=== PATIENT | female | born 1980 | race Caucasian/White ===

== ENCOUNTER 2019-05-26 09:01 | Emergency (ER) | payer OTHER, SELFPAY ==
[2019-05-26 09:02] VITALS: BP 148/89; PULSE 95; RESP 18; TEMP 36.4; O2SAT 99; BMI 40.4
--- NOTE | 2019-05-26 09:25 | ED.VISSUMM ---
- ER Visit Summary Date of Service: 05/26/19 Chief Complaint: Dizziness History of Present Illness: The patient is a 39 F who presents with dizziness that began yesterday. Patient states is been constant since she woke up yesterday morning. Patient states it feels like the room is spinning and she is off balance. Patient states she feels like she could walk into oro. Patient denies any tinnitus or hearing changes. Patient admits to chronic headaches and states she has a headache behind her right eye. Patient states her dizziness is worse with certain movements. Patient denies any chest pain or palpitations. Patient denies any fevers or chills. Physical Examination: Vital signs are stable. Patient is afebrile. Patient is in no acute distress. Pupils are equal, round, and reactive to light bilaterally. Extraocular muscles were intact. There is mild nystagmus with left lateral gaze. Cranial nerves II through XII are intact. There are no focal motor or sensory deficits noted. Oral mucosa is pink and moist. Neck is supple. Trachea is midline. There is no JVD. Heart was regular rate and rhythm. Lungs are clear and equal bilaterally. Abdomen is soft. Bowel sounds are normal. There is no tenderness. Test Results: CBC and basic metabolic profile were within normal limits. Emergency Department Course and Treatment: Patient was given IV fluids and oral Valium here. Patient was feeling better on reevaluation. Patient states her dizziness has improved. Patient was given prescription for Valium and Antivert. Patient was instructed to follow-up with her primary care physician in 5 to 7 days. Patient understood and was agreeable with the plan. All questions were answered. Disposition: Discharge home Impression: Peripheral vertigo This note was generated with [employer] dictation software. It may contain incorrect words, spelling, and punctuation that were not noted in review of the chart prior to signing ED Disposition - Plan for ED Patient: Disposition: Home or Assisted Living Diagnosis: Peripheral vertigo Instructions: VERTIGO, Unspecified Prescriptions: Meclizine HCl 25 mg PO TID PRN PRN #9 tab PRN Reason: Vertigo Prescription Printed Diazepam [Valium] 2 mg PO TID PRN PRN #9 tab PRN Reason: Vertigo Prescription Printed Referrals: Sebastian George MD [Primary Care Provider] - 5-7 Days
[2019-05-26] MEDS: 0.9% Normal Saline 1,000 ML 1000 ML IV (09:34)
[2019-05-26] MEDS: diazePAM 5 MG Tablet 2.5 MG PO (09:35)
[2019-05-26 09:56] LABS: Absolute Lymphocyte Count 2.04 X10^3/uL (0.83-4.51); Absolute Neutrophil Count 5.6 X10^3/uL (2.0-7.7); Basophil# 0.07 X10^3/uL; Basophil% 0.8 % (0-1); Eosinophil# 0.11 X10^3/uL; Eosinophils% 1.3 % (0-5); Hematocrit 42.6 % (37-47); Hemoglobin 13.9 g/dL (12.0-15.0); Lymphocyte # 2.04 X10^3/ul (4.0); Lymphocyte % 23.9 % (19-41); Mean Corp Hgb Conc 32.6 g/dL (32-36); Mean Corpuscular Hgb 28.8 pg (27.0-32.0); Mean Corpuscular Volume 88.4 fL (81-99); Mean Platelet Vol. 9.6 fl (6.2-12.0); Monocyte% 8.2 % (0-10); NRBC Flagged by Analyzer 0 % (0-5); Neutrophil # 5.55 X10^3/uL (2.7-7.7); Neutrophil % 65.2 % (47-70); Platelet Count 357 K/mm3 (150-450); RBC Distribution Width CV 12.6 % (11.6-14.6); RBC Distribution Width SD 40.8 fl (35.1-43.9); Red Blood Count 4.82 M/mm3 (4.2-5.4); White Blood Count 8.5 K/mm3 (4.4-11.0)
[2019-05-26 10:00] LABS: Anion Gap 5 (5-15); BUN 9 mg/dL (7-18); BUN/Creat Ratio 8.8 RATIO (10-20); Calcium,Total 8.5 mg/dL (8.5-10.1); Chloride 106 mmol/L (98-107); Creatinine, Serum 1.02 mg/dL (0.55-1.02); EST Glomerular Filtration Rate 64 mL/min (>60); Est Glom Filt Rate - Afr Amer 78 mL/min (>60); Estimated Creatinine Clearance 72.01 ml/min; Glucose 93 mg/dL (74-106); Potassium 3.8 mmol/L (3.5-5.1); Sodium Level 139 mmol/L (136-145)
[2019-05-26 11:13] VITALS: BP 135/64; PULSE 77; RESP 16; O2SAT 98
== END 2019-05-26 11:15 | disposition home or self-care (01) ==
PROVIDERS: Emergency Provider Emergency Medicine; Family Provider Family Medicine; PCP Family Medicine
DX: H81.399 Other peripheral vertigo, unspecified ear (principal); M54.2 Cervicalgia; M54.9 Dorsalgia, unspecified; R51 Headache; G89.29 Other chronic pain; J45.909 Unspecified asthma, uncomplicated; K21.9 Gastro-esophageal reflux disease without esophagitis; M79.7 Fibromyalgia; E03.9 Hypothyroidism, unspecified; F39 Unspecified mood [affective] disorder; Z79.899 Other long term (current) drug therapy
CPT/HCPCS: 36415; 80048; 85025; 96360; 96361; 99284; J7030; A4216

== ENCOUNTER 2019-09-26 11:29 | Emergency (ER) | payer SELFPAY ==
[2019-09-26 11:31] VITALS: BP 158/90; PULSE 80; RESP 17; TEMP 36.8; O2SAT 97; BMI 39.1
--- NOTE | 2019-09-26 11:49 | RAD_ITS ---
STUDY: X-RAY CHEST REASON FOR EXAM: Female, 39 years old. COUGH SINCE THURSDAY TECHNIQUE: PA and lateral views of the chest. COMPARISON: Comparison is made with prior study March 31, 2015. FINDINGS: The lungs are clear and expanded. Scattered calcified granulomas. There is no demonstrated pleural abnormality. Normal size heart. Normal mediastinum and karley. Normal visualized pulmonary arteries. Normal visualized aortic arch and descending thoracic aorta. Normal visualized thoracic spine. Normal visualized ribs, clavicles, and shoulders. There is no demonstrated abnormality of the visualized soft tissue structures of the upper abdomen. RAD/Chest 1 View (Portable) IMPRESSION: Normal x-ray examination of the chest. Electronically Signed: Be Ward, at 13:06 EDT , Service support ,
--- NOTE | 2019-09-26 11:53 | ED.DCSUM_ITS ---
History of Present Illness Chief Complaint: Cough Informant: Patient Narrative: Patient presents with a cough, this is been ongoing for 2 weeks she has no fever chills she has slight upper airway congestion she has been working from home and lives by herself. She has no sick contacts. She has no shortness of breath. She has no dysuria or hematuria she has no abdominal pain. She denies . She has no flank pain. She denies a rash. She has no neck pain or stiffness. Past Medical History - Allergies and Home Meds Allergies/Adverse Reactions: Allergies codeine Allergy (Verified 09/26/19 11:30) Chest tightness mirtazapine [From Remeron] Allergy (Verified 09/26/19 11:30) Rash morphine Allergy (Verified 09/26/19 11:30) Chest tightness Penicillins Allergy (Verified 09/26/19 11:30) Rash Sulfa (Sulfonamide Antibiotics) Allergy (Verified 09/26/19 11:30) Itching Primary Care Physician: Sebastian George MD [Primary Care Provider] - Past Medical History: - - Asthma, hypothyroidism Smoking Status: Former smoker Review of Systems All systems negative except as indicated General: Denies: Chills, Fever Eyes: Denies: Visual changes - bilaterally ENT: Reports: Rhinorrhea. Denies: Bilateral ear pain, Sore throat Cardiovascular: Denies: Chest pain, Palpitations Respiratory: Reports: Cough. Denies: Dyspnea, Sputum Gastrointestinal: Denies: Abdominal pain, Nausea Genitourinary: Denies: Dysuria Musculoskeletal: Denies: Myalgias, Neck pain, Back pain Skin: Denies: Rash Neurological: Denies: Headache, Weakness Endocrine: Denies: Polyuria Physical Exam Vital Signs/Narrative: Vital Signs Temp Pulse Resp BP Pulse Ox 09/26/19 11:31 98.3 F 80 17 158/90 H 97 General: Well nourished, Well developed Eyes: Perrl, EOMI ENT: Moist mucous membranes, - - Some upper airway congestion Neck: Supple Cardiovascular: Regular rate, Regular rhythm Respiratory: No distress, CTA bilaterally Abdomen: Soft, Nontender, Nondistended, Normal bowel sounds Back: Nontender, Normal Inspection Extremities: Nontender, No edema Skin: Normal color, No rash Neurological: Alert, Oriented x3 Psychological: Normal affect Diagnostic/Tx/Re-eval Chest X-Ray - ED: 1 View, Read by ED Physician, Read by Radiologist, Normal, Heart, Lungs - Medical Decision Making Patient has a normal work-up, she likely has bronchitis, I told her she could have coronavirus however I cannot test at this particular time she already is self quarantining and I told her to continue that, if she worsens she needs to return otherwise she has a normal x-ray and blood work. I will give her an inhaler for home and antitussives. ED Disposition - Plan for ED Patient: Disposition: Psychiatric Hospital or Unit Diagnosis: Bronchitis Instructions: Acute Bronchitis Prescriptions: Albuterol Sulfate [Proair Digihaler] 90 mcg IH 4X/DAY PRN #1 aer.pw.bas PRN Reason: Cough Transmission Status: Pending to [facility] Benzonatate [Tessalon Perle] 100 mg PO Q4H PRN PRN #20 cap PRN Reason: Cough Transmission Status: Pending to [facility] Referrals: Sebastian George MD [Primary Care Provider] - 3-5 Days
[2019-09-26 12:33] LABS: Absolute Lymphocyte Count 2.56 X10^3/uL (0.83-4.51); Basophil# 0.06 X10^3/uL; Basophil% 0.8 % (0-1); Eosinophil# 0.14 X10^3/uL; Eosinophils% 1.9 % (0-5); Hematocrit 42.2 % (37-47); Hemoglobin 13.7 g/dL (12.0-15.0); Lymphocyte # 2.56 X10^3/ul (4.0); Lymphocyte % 35.1 % (19-41); Mean Corp Hgb Conc 32.5 g/dL (32-36); Mean Corpuscular Hgb 28.8 pg (27.0-32.0); Mean Corpuscular Volume 88.7 fL (81-99); Mean Platelet Vol. 9.7 fl (6.2-12.0); Monocyte# 0.51 X10^3/uL; NRBC Flagged by Analyzer 0 % (0-5); Neutrophil % 54.8 % (47-70); Platelet Count 339 K/mm3 (150-450); RBC Distribution Width CV 12.2 % (11.6-14.6); RBC Distribution Width SD 39.8 fl (35.1-43.9); Red Blood Count 4.76 M/mm3 (4.2-5.4); White Blood Count 7.3 K/mm3 (4.4-11.0)
== END 2019-09-26 14:48 | disposition home or self-care (01) ==
PROVIDERS: Emergency Provider Emergency Medicine; PCP Family Medicine
DX: J40 Bronchitis, not specified as acute or chronic (principal); E03.9 Hypothyroidism, unspecified; J45.909 Unspecified asthma, uncomplicated; Z79.899 Other long term (current) drug therapy; Z87.891 Personal history of nicotine dependence
CPT/HCPCS: 71045; 85025; 99283

== ENCOUNTER 2019-10-19 00:43 | Emergency (ER) | payer SELFPAY ==
[2019-10-19 00:53] VITALS: BP 136/95; PULSE 86; RESP 23; TEMP 36.8; O2SAT 100; BMI 40.2
[2019-10-19 00:57] VITALS: BP 136/95; PULSE 84; RESP 22; TEMP 36.8; O2SAT 99
[2019-10-19] MEDS: Benzonatate 100 MG Capsule 200 MG PO (01:22)
--- NOTE | 2019-10-19 01:26 | ED.DCSUM_ITS ---
- ER Visit Summary Date of Service: 10/19/19 Chief Complaint: Cough and shortness of breath History of Present Illness: The patient is a [address] Andrew. She reports that she has a cough began on September 11. States that she had fever, fatigue, and this cough for a week. It seemed to improve, but did not resolve. She was seen here September 25 and was diagnosed with bronchitis. She had a telehealth visit with [facility] on October 02 and was prescribed prednisone. She had another telehealth visit on October 08 and was prescribed doxycycline. She did not have a chest x-ray at that time. She has not been tested for coronavirus. Patient reports that despite all of the above measures she still has coughing episodes. She reports that she is coughing up very little clear sputum. No blood. No fever, chills, or chest pain. Reports that she has moderate shortness of breath currently and severe at worst. Is worsened by coughing. She has had minimal relief with her albuterol MDI. Patient lives by herself. She has been staying at home. She does not know of any sick contacts. She has not been tested for COVID-19. Physical Examination: Vitals: Stable. Afebrile. General: Well-nourished and well-developed. Head: Normocephalic atraumatic. Neck: Supple, no lymphadenopathy. No JVD. Nontender. Cardiovascular: Regular rate and rhythm. No murmurs. Respiratory: No respiratory distress. Clear to auscultation bilaterally. Frequent dry cough. Abdominal: Soft, nontender, nondistended, normal bowel sounds. No guarding, rebound, or peritoneal signs. Back: Nontender. Extremities: Nontender, no edema. Skin: Normal color, no rash. Neurologic: Alert and oriented ?3. Cranial nerves II through XII are intact. Normal strength and sensation. Psych: Normal affect. Test Results: Chest x-ray shows no acute disease. Emergency Department Course and Treatment: Patient had an IV placed. She is given a 500 cc bolus of normal saline. She was given Tessalon Perles and prednisone. She is resting comfortably. Multiple attempts were made at a blood draw by nursing staff as well as the lab without success. The patient refused a fem stick. Treatment Plan: Patient will be discharged on prednisone. She is instructed to follow-up with Dr. Quintero in 1 to 2 weeks for another exam. Follow-up with her primary care physician for possible COVID-19 testing. She is instructed to continue to quarantine herself. Return to the emergency department for any worsening symptoms. Disposition: To home in improved and stable condition. Impression: 1. URI. 2. Asthma. 3. Possible COVID-19 infection. This note was generated with [employer] dictation software. It may contain incorrect words, spelling, and punctuation that were not noted in review of the chart prior to signing ED Disposition - Plan for ED Patient: Instructions: ED Upper Resp Infec No Abx Tx Prescriptions: Prednisone [Deltasone] 60 mg PO DAILY #15 tab Prescription Printed Referrals: Sebastian George MD [Primary Care Provider] - 1-2 Days if not improving Kevin Quintero MD [STAFF PHYSICIAN] - 1-2 Weeks
--- NOTE | 2019-10-19 02:40 | RAD_ITS ---
STUDY: X-RAY CHEST REASON FOR EXAM: Female, 39 years old. SOB, COUGH, RASH TECHNIQUE: Single AP portable view of the chest. COMPARISON: 09/26/2019. FINDINGS: The lungs are clear and expanded. There is no demonstrated pleural abnormality. Normal size heart. Normal mediastinum and karley. Normal visualized pulmonary arteries. Normal visualized aortic arch and descending thoracic aorta. Normal visualized thoracic spine. Normal visualized ribs, clavicles, and shoulders. There is no demonstrated abnormality of the visualized soft tissue structures of the upper abdomen. RAD/Chest 1 View (Portable) IMPRESSION: Normal x-ray examination of the chest. Electronically Signed: Janeen López MD at 3:30 EDT , Service support ,
[2019-10-19 02:43] VITALS: BP 135/86; PULSE 87; RESP 16; O2SAT 99
--- NOTE | 2019-10-19 02:50 | ED.RN ---
Lab called after multiple attempts of getting blood. IV was placed, no blood. Lab unable to get blood. MD aware and will talk to PT about femoral stick, etc.
[2019-10-19 03:35] VITALS: BP 137/88; PULSE 86; RESP 18; O2SAT 100
[2019-10-19] MEDS: predniSONE 20 MG Tablet 60 MG PO (03:42)
== END 2019-10-19 04:09 | disposition home or self-care (01) ==
LOC: ED 04:03
PROVIDERS: Emergency Provider Emergency Medicine; PCP Family Medicine
DX: J06.9 Acute upper respiratory infection, unspecified (principal); J45.909 Unspecified asthma, uncomplicated; K21.9 Gastro-esophageal reflux disease without esophagitis; M79.7 Fibromyalgia; F31.9 Bipolar disorder, unspecified; E03.9 Hypothyroidism, unspecified; Z79.899 Other long term (current) drug therapy
CPT/HCPCS: 71045; 87633; 96360; 96361; 99285; J7040

== ENCOUNTER 2021-05-27 11:27 | Emergency (ER) | payer BC, SELFPAY ==
[2021-05-27 11:27] VITALS: BP 156/102; PULSE 82; RESP 16; TEMP 36.3; O2SAT 99; BMI 38.5
[2021-05-27 11:31] VITALS: BMI 38.5
--- NOTE | 2021-05-27 11:41 | ED.RN ---
pt texting boyfriend on her phone. pt answers questions appropriately. pt able to remove shirt and bra and put gown on without assistance.
--- NOTE | 2021-05-27 12:19 | CT_ITS ---
STUDY: CT BRAIN WITHOUT CONTRAST REASON FOR EXAM: Female, 41 years old. Weakness and confusion. RADIATION DOSAGE (If Supplied By Facility): CTDIvol = ( 44.99 ) mGy, DLP = ( 812.98 ) mGycm TECHNIQUE: Transaxial CT imaging of the brain was performed without administration of intravenous contrast material. Individualized dose optimization techniques were used for this CT. COMPARISON: No relevant priors. FINDINGS: Normal soft tissue structures. Normal calvarium. Normal size ventricles and extra-axial spaces for the patient''s age. Normal white matter tracts of the cerebral hemispheres. Normal basal ganglia and thalami. Normal brainstem. Normal cerebellum. There is no intracranial hemorrhage. There are no findings of an acute ischemic infarction. Normal visualized paranasal sinuses. CT/Brain/Head without Contrast IMPRESSION: Normal unenhanced CT scan of the brain. Electronically Signed: Be Ward MD at 13:56 EST , Service support ,
--- NOTE | 2021-05-27 12:20 | EKG12_ITS ---
Test Reason : Blood Pressure : / mmHG Vent. Rate : 070 BPM Atrial Rate : 070 BPM P-R Int : 108 ms QRS Dur : 092 ms QT Int : 374 ms P-R-T Axes : 043 020 009 degrees QTc Int : 403 ms Sinus rhythm with short VA Otherwise normal ECG Confirmed by NORMAN MCDONALD, PRICE ([id number]), technical writer and editor JESUS ALBERTO NAGY ([id number]) on 05/29/2021 9:49:01 AM Referred By: MED/USMAN Confirmed By:PRICE AUSTIN MD
[2021-05-27 12:46] VITALS: BP 134/82; PULSE 86; RESP 20; O2SAT 97
[2021-05-27 12:51] LABS: Absolute Lymphocyte Count 2.49 X10^3/uL (0.83-4.51); Absolute Neutrophil Count 4.4 X10^3/uL (2.0-7.7); Basophil# 0.06 X10^3/uL; Basophil% 0.8 % (0-1); Eosinophil# 0.15 X10^3/uL; Eosinophils% 1.9 % (0-5); Hematocrit 43.2 % (37-47); Lymphocyte # 2.49 X10^3/ul (0.83-4.51); Lymphocyte % 32.2 % (19-41); Mean Corp Hgb Conc 32.4 g/dL (32-36); Mean Corpuscular Volume 92.5 fL (81-99); Mean Platelet Vol. 9.8 fl (6.2-12.0); Monocyte# 0.57 X10^3/uL; Monocyte% 7.4 % (0-10); NRBC Flagged by Analyzer 0 % (0-5); Neutrophil % 56.9 % (47-70); Platelet Count 369 K/mm3 (150-450); RBC Distribution Width CV 12.2 % (11.6-14.6); RBC Distribution Width SD 41.7 fl (35.1-43.9); Red Blood Count 4.67 M/mm3 (4.2-5.4); White Blood Count 7.7 K/mm3 (4.4-11.0)
[2021-05-27 13:15] LABS: ALB/GLOB Ratio 0.9 RATIO (0.9-2.4); AST(SGOT) 12 U/L (15-37); Alanine Aminotransfer ALT/SGPT 26 U/L (13-56); Albumin, Serum 3.8 g/dL (3.2-5.0); Alkaline Phosphatase 86 U/L (45-117); Anion Gap 8 (5-15); BUN 12 mg/dL (7-18); BUN/Creat Ratio 11.9 RATIO (10-20); Calcium,Total 9.4 mg/dL (8.5-10.1); Chloride 106 mmol/L (98-107); Creatinine, Serum 1.01 mg/dL (0.55-1.02); EST Glomerular Filtration Rate 64 mL/min (>60); Est Glom Filt Rate - Afr Amer 78 mL/min (>60); Estimated Creatinine Clearance 71.28 ml/min; Globulin 4.2 g/dL (2.2-4.2); Glucose 88 mg/dL (74-106); Potassium 3.7 mmol/L (3.5-5.1); Sodium Level 141 mmol/L (136-145); T4 Free Direct 1.45 ng/dL (0.76-1.46); Thyroid Stim Hormone (TSH) 0.88 uIU/mL (0.358-3.74); Troponin-I HS 6 pg/mL (3.0-54.0)
--- NOTE | 2021-05-27 13:16 | RAD_ITS ---
STUDY: X-RAY CHEST REASON FOR EXAM: Female, 41 years old. Confusion. TECHNIQUE: Single AP portable view of the chest. COMPARISON: Comparison is made with prior study of 10/19/2019. FINDINGS: EKG electrodes are seen. The lungs are clear and expanded. There is no demonstrated pleural abnormality. Normal size heart. Normal mediastinum and karley. Normal visualized pulmonary arteries. Normal visualized aortic arch and descending thoracic aorta. Normal visualized thoracic spine. Normal visualized ribs, clavicles, and shoulders. There is no demonstrated abnormality of the visualized soft tissue structures of the upper abdomen. RAD/Chest 1 View (Portable) IMPRESSION: Normal x-ray examination of the chest. Electronically Signed: Be Ward MD at 13:41 EST , Service support ,
[2021-05-27 14:22] VITALS: BP 137/90; PULSE 85; RESP 14; O2SAT 100
--- NOTE | 2021-05-27 14:35 | EDS_ITS ---
HPI History of Present Illness Chief Complaint: Neuro S/Sx Narrative Narrative: 41-year-old female speaking in full complete sentences stating that she is having trouble speaking in full sentences. She states this is been going on for 4 days. She states this may be a problem with memory. She states that her boyfriend says she is having some memory problems. Patient denies any headache, trauma, visual complaints, difficulty swallowing, or difficulty moving either arm or leg. She has not had any numbness or tingling on any extremity. She denies chest pain or shortness of breath. She has no history of stroke in the past. [facility] Medical History Hypothyroidism Home Medications albuterol sulfate [Ventolin Hfa] 1 puff INHALATION Q4H PRN PRN 01/26/14 [History Last Taken Unknown] cetirizine [Zyrtec] 10 mg PO DAILY 01/26/14 [History Last Taken Unknown] levothyroxine 75 mcg PO DAILY 01/26/14 [History Last Taken Unknown] montelukast 10 mg PO DAILY 01/26/14 [History Last Taken Unknown] doxepin 50 mg PO QHS 03/30/15 [History Last Taken Unknown] diazepam 2 mg PO TID PRN PRN #9 tab 05/26/19 [Rx Last Taken Unknown] meclizine 25 mg PO TID PRN PRN #9 tab 05/26/19 [Rx Last Taken Unknown] albuterol sulfate 90 mcg IH 4X/DAY PRN #1 aer.pw.bas 09/26/19 [Rx Last Taken Unknown] benzonatate 100 mg PO Q4H PRN PRN #20 cap 09/26/19 [Rx Last Taken Unknown] prednisone 60 mg PO DAILY #15 tab 10/19/19 [Rx Last Taken Unknown] Allergy/AdvReac Type Severity Reaction Status Date / Time codeine Allergy Chest Verified 05/27/21 11:29 tightness mirtazapine [From Remeron] Allergy Rash Verified 05/27/21 11:29 morphine Allergy Chest Verified 05/27/21 11:29 tightness Penicillins Allergy Rash Verified 05/27/21 11:29 Sulfa (Sulfonamide Allergy Itching Verified 05/27/21 11:29 Antibiotics) Social History Smoking Status: Never smoker ROS ROS ED Constitutional Constitutional ED: Denies chills or fever(s) Eyes Eyes: Denies blurry vision or change in vision ENT ENT ED: Denies rhinorrhea or sore throat Cardiovascular Cardiovascular: Denies chest pain or palpitations Respiratory/Chest Respiratory/Chest: Denies cough, dyspnea or sputum Gastrointestinal Gastrointestinal: Denies abdominal pain, nausea or vomiting Genitourinary Genitourinary ED: Denies dysuria or hematuria Musculoskeletal Musculoskeletal: Denies arthralgias, back pain, myalgias or neck pain Integumentary Denies abscess or rash Neurologic Neurologic: Denies headache(s) Psychiatric Psychiatric: Denies anxiety or depression Endocrine Endocrinology: Denies polydipsia, polyphagia or polyuria EXAM Physical Exam Const Vital Signs: 05/27/21 11:27 05/27/21 12:46 05/27/21 14:22 Temperature 97.3 F L Temperature Source Temporal Pulse Rate 82 86 85 Respiratory Rate 16 20 H 14 Blood Pressure 156/102 H 134/82 H 137/90 H Blood Pressure Mean 120 99 105 Pulse Ox 99 97 100 Oxygen Delivery Method Room Air Room Air Room Air Positive well nourished General Appearance ED: NAD HEENT Reports moist mucous membranes Negative for trauma Eyes PERRL and EOMs intact bilaterally General Eye ED: Negative for pale conjunctiva or scleral icterus Neck no lymphadenopathy and supple Resp normal respiratory effort and clear to auscultation bilaterally Cardio regular rate and regular rhythm Neuro oriented x3, CN's II-XII intact bilaterally and no sensory deficits noted Neuro Narrative: NIH = 0. Patient speaking in full sentences without dysarthria or confusion. Sensorium / Orientation: alert Motor Exam: strength 5/5 throughout Psych mental status grossly normal MDM MDM MDM Narrative Medical decision making narrative: Patient concern for possible stroke although her only symptom is having difficulty speaking in full sentences. She has been able to answer all of my questions in full complete sentences without speech difficulty. There is no slurred speech. That her NIH is 0. I did obtain blood work and her CBC, CMP are normal. Patient additionally I did check her TSH level which is 0.88 and her T4 is 1.45 and these are both normal. EKG on my interpretation shows a normal sinus rhythm with a ventricular 70 bpm without sign of ischemic change. Chest x-ray on my interpretation shows no acute cardiopulmonary process and the radiologist does agree. CT of the brain without contrast is performed and is negative for any acute intracranial findings. Patient has no current risk factors for stroke. She is not had a history of this. I did not find any abnormalities on her neurologic exam or her work-up. I believe she is safe for outpatient follow-up with her primary care provider. Impression: 1. Feared complaint not found Lab Data Labs: Laboratory Results - last 24 hr 05/27/21 05/27/21 12:40 12:40 WBC 7.7 RBC 4.67 Hgb 14.0 Hct 43.2 MCV 92.5 MCH 30.0 MCHC 32.4 RDW Std Deviation 41.7 RDW Coeff of Trudy 12.2 Plt Count 369 MPV 9.8 Immature Gran % (Auto) 0.800 Neut % (Auto) 56.9 Lymph % (Auto) 32.2 Coke % (Auto) 7.4 Eos % (Auto) 1.9 Baso % (Auto) 0.8 Absolute Neuts (auto) 4.4 Absolute Lymphs (auto) 2.49 Nucleated RBC % 0 Sodium 141 Potassium 3.7 Chloride 106 Carbon Dioxide 27.0 Anion Gap 8 BUN 12 Creatinine 1.01 Estim Creat Clear Calc 71.28 Est GFR (MDRD) Af Amer 78 Est GFR (MDRD) Non-Af 64 BUN/Creatinine Ratio 11.9 Glucose 88 Calcium 9.4 Total Bilirubin 0.30 AST 12 L ALT 26 Alkaline Phosphatase 86 Troponin I High Sens 6 Total Protein 8.0 Albumin 3.8 Globulin 4.2 Albumin/Globulin Ratio 0.9 TSH 0.88 Free T4 1.45 Radiography Diagnostic Testing: Clinical Impression(s) from Imaging Studies Brain CT 05/27/21 12:19 IMPRESSION: Normal unenhanced CT scan of the brain. Electronically Signed: Be Ward MD at 13:56 EST , Service support , Chest X-Ray 05/27/21 13:16 IMPRESSION: Normal x-ray examination of the chest. Electronically Signed: Be Ward MD at 13:41 EST , Service support , Discharge Plan Triage Chief Complaint: Neuro S/Sx ED Provider: Ramu Wilson Dx/Rx/DC Orders Prescriptions: No Action levothyroxine 75 MCG tablet 75 mcg PO DAILY RF: 0 montelukast 10 MG tablet 10 mg PO DAILY RF: 0 albuterol sulfate [Ventolin HFA] 1 INHALER inhaler 1 puff inhalation Q4H PRN PRN (Reason: Sob &/Or Wheezing) RF: 0 cetirizine [Zyrtec] 10 MG capsule 10 mg PO DAILY RF: 0 doxepin 50 MG capsule 50 mg PO QHS RF: 0 diazepam 2 MG tablet 2 mg PO TID PRN PRN (Reason: Vertigo) Qty: 9 RF: 0 meclizine 25 MG tablet 25 mg PO TID PRN PRN (Reason: Vertigo) Qty: 9 RF: 0 benzonatate 100 MG capsule 100 mg PO Q4H PRN PRN (Reason: Cough) Qty: 20 RF: 0 albuterol sulfate 90 MCG aero powdr breath act w/sensor 90 mcg IH 4X/DAY PRN (Reason: Cough) Qty: 1 RF: 0 prednisone 20 MG tablet 60 mg PO DAILY Qty: 15 RF: 0 Primary Care Provider: Sebastian George Referrals: Sebastian George MD [Primary Care Provider] - Activity Restrictions/Additional Instructions: The cause of your symptoms that you have been having for 4 days is unclear. I did not find any neurologic abnormalities on your exam. Your blood work and imaging is all normal. I recommend that she follow-up with your primary care provider. Disposition Disposition: Home, Self Care
== END 2021-05-27 14:41 | disposition home or self-care (01) ==
PROVIDERS: Emergency Provider Student in an Organized Health Care Education/Training Program; PCP Family Medicine
DX: Z71.1 Person with feared health complaint in whom no diagnosis is made (principal); R47.9 Unspecified speech disturbances; E03.9 Hypothyroidism, unspecified; Z79.899 Other long term (current) drug therapy
CPT/HCPCS: 70450; 71045; 80053; 84439; 84443; 84484; 85025; 93005; 99284; A4216

== ENCOUNTER 2021-08-01 15:46 | Emergency (ER) | payer OTHER, BC, SELFPAY ==
[2021-08-01 15:47] VITALS: BP 164/97; PULSE 107; RESP 16; TEMP 36.2; O2SAT 100; BMI 38.0
--- NOTE | 2021-08-01 16:06 | EDS_ITS ---
HPI <FEI Mendez - Last Filed: 08/01/21 17:14> History of Present Illness Chief Complaint: Bite Narrative Narrative: Patient presents with dog bites to her left leg. 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 The horticultural farm manager's boxer ran out and bit her several times on the left leg. Bleeding is controlled. Last tetanus is unknown. PFSH <FEI Mendez - Last Filed: 08/01/21 17:14> [facility] Medical History Hypothyroidism Home Medications albuterol sulfate [Ventolin Hfa] 1 puff INHALATION Q4H PRN PRN 01/26/14 [History Last Taken Unknown] cetirizine [Zyrtec] 10 mg PO DAILY 01/26/14 [History Last Taken Unknown] levothyroxine 100 mcg PO DAILY 01/26/14 [History Last Taken Unknown] montelukast 10 mg PO DAILY 01/26/14 [History Last Taken Unknown] doxepin 50 mg PO QHS 03/30/15 [History Last Taken Unknown] diazepam 2 mg PO TID PRN PRN #9 tab 05/26/19 [Rx Last Taken Unknown] meclizine 25 mg PO TID PRN PRN #9 tab 05/26/19 [Rx Last Taken Unknown] albuterol sulfate 90 mcg IH 4X/DAY PRN #1 aer.pw.bas 09/26/19 [Rx Last Taken Unknown] benzonatate 100 mg PO Q4H PRN PRN #20 cap 09/26/19 [Rx Last Taken Unknown] amoxicillin-pot clavulanate 1 tab PO BID #14 tab 08/01/21 [Rx Last Taken Unknown] ondansetron 4 mg PO Q8H PRN #10 tab 08/01/21 [Rx Last Taken Unknown] tramadol 50 mg PO Q6H PRN #10 tab 08/01/21 [Rx Last Taken Unknown] trazodone 100 mg PO QHS 08/01/21 [History Last Taken Unknown] Allergy/AdvReac Type Severity Reaction Status Date / Time codeine Allergy Chest Verified 08/01/21 15:50 tightness mirtazapine [From Remeron] Allergy Rash Verified 08/01/21 15:50 morphine Allergy Chest Verified 08/01/21 15:50 tightness Penicillins Allergy Rash Verified 08/01/21 15:50 Sulfa (Sulfonamide Allergy Itching Verified 08/01/21 15:50 Antibiotics) Social History Smoking Status: Never smoker ROS <FEI Mendez - Last Filed: 08/01/21 17:14> ROS ED ROS Narrative Constitutional: Negative for fever, chills, malaise. Eyes: Negative for visual change. ENT: Negative for sore throat, ear pain, rhinorrhea. CVS: Negative for palpitations, chest pain, syncope. Respiratory: Negative for shortness of breath, cough, orthopnea. GI: Negative for abdominal pain, nausea, vomiting. : Negative for dysuria, hematuria or frequency. Neuro: Negative for headache, motor/sensory dysfunction. Skin: Positive for wound. Negative for rash, abscess. Musc: Negative for joint pain, swelling, trauma. Heme: Negative for easy bruising, bleeding, lymphadenopathy. EXAM <FEI Mendez - Last Filed: 08/01/21 17:14> Physical Exam Narrative Exam Narrative: CONST: Patient sitting in no acute distress. EYES: Normal inspection. ENT: Normal inspection, moist mucous membranes. NECK: Normal inspection. RESP: No respiratory distress, CTAB. CVS: Regular rate and rhythm, no murmur, no gallop. SKIN: Several small abrasions/tiny lacerations on left lower extremity with surrounding bruising. 1 on posterior thigh, 2 on anterior mid thigh, 1 on lateral calf. EXTREMITIES: Normal appearance, no pedal edema. 2+ PT pulses. NEURO: Oriented x4. PSYCH: Normal affect. Const Vital Signs: 08/01/21 15:47 Temperature 97.2 F L Temperature Source Temporal Pulse Rate 107 H Respiratory Rate 16 Blood Pressure 164/97 H Blood Pressure Mean 119 Pulse Ox 100 Oxygen Delivery Method Room Air <Dr. Aaron Damon MD - Last Filed: 08/01/21 17:26> Physical Exam Const Vital Signs: 08/01/21 15:47 Temperature 97.2 F L Temperature Source Temporal Pulse Rate 107 H Respiratory Rate 16 Blood Pressure 164/97 H Blood Pressure Mean 119 Pulse Ox 100 Oxygen Delivery Method Room Air MDM <FEI Mendez - Last Filed: 08/01/21 17:14> [facility] Narrative Medical decision making narrative: Patient has multiple dog bites to her left leg. She has 4 small areas of tiny lacerations/abrasions on the left thigh and lateral calf. They are all superficial and there is some surrounding bruising. Extremities neurovascularly intact. They were thoroughly cleansed with soap and water and tetanus was updated. Only one wound on her anterior thigh has some fat exposed and required closure. It was thoroughly irrigated with sterile saline and anesthetized with 2 cc of 1% lidocaine. It was closed with 2 simple interrupted sutures of 5-0 Ethilon which will need removed in 10 to 12 days. She was given first dose of Augmentin here and a prescription for home. She was counseled on signs of infection that would warrant return and was discharged in stable condition. Diagnosis 1. Dog bites, left leg 2. Laceration of left thigh, simple closure <Dr. Aaron Damon MD - Last Filed: 08/01/21 17:26> [facility] Narrative Medical decision making narrative: Patient was taking pictures of a home for inspection. The homeowners dog ran out and charged her. She was bit in the leg, anterior proximal left thigh and superior posterior right thigh near the buttocks crease. There is 1 wound anterior left thigh that will require stitching. It is V-shaped there is dog hair in the wound and fat protruding. Will have physician assistant librarian clean wound and place 1 stitch at corner to approximate loosely. Patient has no neurovascular findings in the left lower leg. Patient's tetanus needs updated. The dog's horticultural farm manager states shots are all up-to-date. Patient has no allergy to penicillin; therefore, will treat with Augmentin. Patient was informed that the puncture wound lateral left calf will not be closed because the incidence of infection is greater than 50% since it is more of a puncture wound than a tear or laceration. The wounds near the crease of the buttocks and proximal posterior left thigh are superficial. There is significant bruising which increases chance of infection. Discharge Plan Triage Chief Complaint: Bite ED Provider: Rosio Solo Dx/Rx/DC Orders Clinical Impression: Dog bite Instructions: ED Dog Bite Prescriptions: New amoxicillin-pot clavulanate 875-125 mg tablet 1 tab PO BID Qty: 14 RF: 0 tramadol 50 mg tablet 50 mg PO Q6H PRN (Reason: pain) Qty: 10 RF: 0 ondansetron 4 mg tablet,disintegrating 4 mg PO Q8H PRN (Reason: nausea and vomiting) Qty: 10 RF: 0 No Action levothyroxine 75 MCG tablet 100 mcg PO DAILY RF: 0 montelukast 10 MG tablet 10 mg PO DAILY RF: 0 albuterol sulfate [Ventolin HFA] 1 INHALER inhaler 1 puff inhalation Q4H PRN PRN (Reason: Sob &/Or Wheezing) RF: 0 cetirizine [Zyrtec] 10 MG capsule 10 mg PO DAILY RF: 0 doxepin 50 MG capsule 50 mg PO QHS RF: 0 diazepam 2 MG tablet 2 mg PO TID PRN PRN (Reason: Vertigo) Qty: 9 RF: 0 meclizine 25 MG tablet 25 mg PO TID PRN PRN (Reason: Vertigo) Qty: 9 RF: 0 benzonatate 100 MG capsule 100 mg PO Q4H PRN PRN (Reason: Cough) Qty: 20 RF: 0 albuterol sulfate 90 MCG aero powdr breath act w/sensor 90 mcg IH 4X/DAY PRN (Reason: Cough) Qty: 1 RF: 0 trazodone 100 mg tablet 100 mg PO QHS RF: 0 Primary Care Provider: Sebastian George Referrals: Sebastian George MD [Primary Care Provider] - Activity Restrictions/Additional Instructions: Clean the wounds with soap and water and you can apply bacitracin and keep covered or leave open to the air as long as they stay clean. The stitches need removed in 10 to 12 days. Take Augmentin which is an antibiotic to prevent infection. If you have any signs of infection such as redness, swelling, or pus please come back to the ER. Disposition Disposition: Home, Self Care
[2021-08-01] MEDS: Amox/Clavulanate 875 MG Tablet PO (16:39)
[2021-08-01] MEDS: Diphth,Pertuss(Acell),Tet Vac 0.5 ML Vial IM (16:41)
[2021-08-01] MEDS: Lidocaine 1% (20 ml mdv) 20 ML Vial INFILT (16:43)
== END 2021-08-01 18:29 | disposition home or self-care (01) ==
PROVIDERS: Emergency Provider Physician Assistant; PCP Family Medicine; Visit Provider Physician Assistant
DX: S80.872A Other superficial bite, left lower leg, initial encounter (principal); S70.372A Other superficial bite of left thigh, initial encounter; S70.371A Other superficial bite of right thigh, initial encounter; W54.0XXA Bitten by dog, initial encounter; Y93.9 Activity, unspecified; Y92.9 Unspecified place or not applicable; E03.9 Hypothyroidism, unspecified; Z79.899 Other long term (current) drug therapy; Z23 Encounter for immunization
CPT/HCPCS: 12001; 90471; 90715; 99285

== ENCOUNTER 2021-08-05 20:46 | Emergency (ER) | payer OTHER, BC, SELFPAY ==
[2021-08-05 20:47] VITALS: BP 124/96; PULSE 110; RESP 18; TEMP 36.9; O2SAT 97; BMI 38.2
--- NOTE | 2021-08-05 22:07 | EDS_ITS ---
HPI History of Present Illness Chief Complaint: Bite Detail of Chief Complaint: Concerned dog bite is infected Informant: patient Onset/Context/Timing Onset: Today Context: Sudden Onset Quality of Pain: Dull and Aching Location: Numerous bites and bruises to right lower extremity Current Severity: Mild Maximum Severity: Severe Worsened by: Sitting in certain positions and walking Relieved by: Lying in bed on her right side Associated Symptoms Associated Symptoms: Negative for Parasthesia, Weakness and Loss of Funtion Narrative Narrative: Patient was seen on August 01 by PA and me after dog bite. 1 V- shaped laceration was stitched using 1 stitch. She was placed on Augmentin. She presents because of drainage from the mid lateral wounds. Drainage is not purulent. It is serous. She has significant bruises noted. She complains of pain. Tetanus Immunization: <5 years Prior similar symptoms: Yes Recent Illness/Hospitalization: Yes ROS ROS ED Constitutional Constitutional ED: Denies chills, fever(s), subjective, sweats or weight loss Cardiovascular Cardiovascular: Denies chest pain or palpitations Musculoskeletal Musculoskeletal: Reports other Details: Right lower thigh pain status post dog bites ; Denies arthralgias, back pain, myalgias or neck pain Integumentary Reports Abrasions and rash Neurologic Neurologic: Denies paresthesias or weakness Hematologic/Lymphatic Hematologic/Lymphatic: Denies easy bleeding or easy bruising [facility] Medical History Asthma Bipolar disorder GERD (gastroesophageal reflux disease) Hypothyroidism Home Medications albuterol sulfate [Ventolin Hfa] 1 puff INHALATION Q4H PRN PRN 01/26/14 [History Last Taken Unknown] cetirizine [Zyrtec] 10 mg PO DAILY 01/26/14 [History Last Taken Unknown] levothyroxine 100 mcg PO DAILY 01/26/14 [History Last Taken Unknown] montelukast 10 mg PO DAILY 01/26/14 [History Last Taken Unknown] doxepin 50 mg PO QHS 03/30/15 [History Last Taken Unknown] diazepam 2 mg PO TID PRN PRN #9 tab 05/26/19 [Rx Last Taken Unknown] meclizine 25 mg PO TID PRN PRN #9 tab 05/26/19 [Rx Last Taken Unknown] albuterol sulfate 90 mcg IH 4X/DAY PRN #1 aer.pw.bas 09/26/19 [Rx Last Taken Unknown] benzonatate 100 mg PO Q4H PRN PRN #20 cap 09/26/19 [Rx Last Taken Unknown] amoxicillin-pot clavulanate 1 tab PO BID #14 tab 08/01/21 [Rx Last Taken Unknown] ondansetron 4 mg PO Q8H PRN #10 tab 08/01/21 [Rx Last Taken Unknown] tramadol 50 mg PO Q6H PRN #10 tab 08/01/21 [Rx Last Taken Unknown] trazodone 100 mg PO QHS 08/01/21 [History Last Taken Unknown] Allergy/AdvReac Type Severity Reaction Status Date / Time codeine Allergy Chest Verified 08/05/21 20:49 tightness mirtazapine [From Remeron] Allergy Rash Verified 08/05/21 20:49 morphine Allergy Chest Verified 08/05/21 20:49 tightness Penicillins Allergy Rash Verified 08/05/21 20:49 Sulfa (Sulfonamide Allergy Itching Verified 08/05/21 20:49 Antibiotics) Surgical History History of cholecystectomy Social History (Updated 08/05/21 @ 22:[address] Aaron Damon MD) household members: none Smoking Status: Never smoker substance use type: does not use EXAM Physical Exam Const Vital Signs: 08/05/21 20:47 Temperature 98.4 F Temperature Source Temporal Pulse Rate 110 H Respiratory Rate 18 Blood Pressure 124/96 H Blood Pressure Mean 105 Pulse Ox 97 Oxygen Delivery Method Room Air Positive well nourished, well developed and obese General Appearance ED: well developed; Negative for NAD Nutritional Appearance: obese Eyes PERRL Neck full ROM Resp normal respiratory effort Cardio regular rate and regular rhythm Extremity full ROM; Negative for normal to inspection Extremity Narrative: Patient has multiple areas of bite ridley left lower extremity. The one laceration that had a stitch placed does not look infected. She has significant bruising. There is no erythema, warmth, fluctuance or purulent drainage noted from any of the wounds. General Extremety ED: Yes tenderness; Negative for deformity or edema General Extremity: Negative for deformity or edema Neuro oriented x3 and CN's II-XII intact bilaterally Sensorium / Orientation: alert Psych mental status grossly normal and thought process normal Skin Lesions: No no lesions Rashes: No no rashes Trauma: puncture; Negative for laceration MDM MDM MDM Narrative Medical decision making narrative: Patient presents because of concern for infected dog bite. Patient was in form that the dog bites do not appear infected. She has serous drainage and she is sore because of the significant bruising. Discharge Plan Triage Chief Complaint: Bite ED Provider: Aaron Damon Dx/Rx/DC Orders Clinical Impression: Contusion of soft tissue, Encounter for assessment of wound, Dog bite of extremity Prescriptions: No Action levothyroxine 75 MCG tablet 100 mcg PO DAILY RF: 0 montelukast 10 MG tablet 10 mg PO DAILY RF: 0 albuterol sulfate [Ventolin HFA] 1 INHALER inhaler 1 puff inhalation Q4H PRN PRN (Reason: Sob &/Or Wheezing) RF: 0 cetirizine [Zyrtec] 10 MG capsule 10 mg PO DAILY RF: 0 doxepin 50 MG capsule 50 mg PO QHS RF: 0 diazepam 2 MG tablet 2 mg PO TID PRN PRN (Reason: Vertigo) Qty: 9 RF: 0 meclizine 25 MG tablet 25 mg PO TID PRN PRN (Reason: Vertigo) Qty: 9 RF: 0 benzonatate 100 MG capsule 100 mg PO Q4H PRN PRN (Reason: Cough) Qty: 20 RF: 0 albuterol sulfate 90 MCG aero powdr breath act w/sensor 90 mcg IH 4X/DAY PRN (Reason: Cough) Qty: 1 RF: 0 amoxicillin-pot clavulanate 875-125 mg tablet 1 tab PO BID Qty: 14 RF: 0 trazodone 100 mg tablet 100 mg PO QHS RF: 0 tramadol 50 mg tablet 50 mg PO Q6H PRN (Reason: pain) Qty: 10 RF: 0 ondansetron 4 mg tablet,disintegrating 4 mg PO Q8H PRN (Reason: nausea and vomiting) Qty: 10 RF: 0 Primary Care Provider: Sebastian George Referrals: Sebastian George MD [Primary Care Provider] - As Needed Disposition Disposition: Home, Self Care
[2021-08-05 22:33] VITALS: BP 120/80; PULSE 74; RESP 16; O2SAT 99
== END 2021-08-05 22:35 | disposition home or self-care (01) ==
LOC: ED 22:26
PROVIDERS: Emergency Provider Emergency Medicine; PCP Family Medicine; Visit Provider Emergency Medicine
DX: S80.872A Other superficial bite, left lower leg, initial encounter (principal); F31.9 Bipolar disorder, unspecified; S80.12XA Contusion of left lower leg, initial encounter; W54.0XXA Bitten by dog, initial encounter; Y93.9 Activity, unspecified; Y92.9 Unspecified place or not applicable; E66.9 Obesity, unspecified; K21.9 Gastro-esophageal reflux disease without esophagitis; E03.9 Hypothyroidism, unspecified; J45.909 Unspecified asthma, uncomplicated; Z79.899 Other long term (current) drug therapy; Z68.38 Body mass index [BMI] 38.0-38.9, adult
CPT/HCPCS: 99281; 99282

== ENCOUNTER 2024-07-14 08:10 | Emergency (ER) | payer OTHER, SELFPAY ==
[2024-07-14] VITALS (7 sets, daily range): BP systolic 114–156; BP diastolic 76–98; PULSE 76–93; RESP 14–19; TEMP 36.5–36.8; O2SAT 94–99; BMI 40.8
--- NOTE | 2024-07-14 08:23 | ED.RN ---
PT FELL DOWN HER PORCH STAIRS FROM ICE. GRABBED THE RAILING WITH HER RIGHT ARM. BODY WENT DOWN AND HER ARM HELD THE RAIL. PAIN 10/10
--- NOTE | 2024-07-14 08:45 | RAD_ITS ---
EXAM: XR Right Wrist Complete, 3 or More Views CLINICAL INDICATION: TECHNIQUE: Frontal, lateral and oblique views of the right wrist. COMPARISON: No relevant prior studies available. FINDINGS: BONES/JOINTS: See below. SOFT TISSUES: Soft tissue swelling without acute fracture. No radiopaque foreign body. RAD/Wrist min 3 Views IMPRESSION: 1. Soft tissue swelling without acute fracture. 2. If symptoms persist, repeat radiograph in 7-10 days recommended. Reading Location: [facility]
--- NOTE | 2024-07-14 08:45 | RAD_ITS ---
EXAM: XR Right Shoulder Complete, 2 or More Views CLINICAL INDICATION: TECHNIQUE: Two or more views of the right shoulder. COMPARISON: No relevant prior studies available. FINDINGS: BONES/JOINTS: Anterior-inferior dislocation of the humeral head from the glenohumeral joint. No acute fracture. SOFT TISSUES: Unremarkable. RAD/Shoulder min 2 Views IMPRESSION: Anterior-inferior dislocation of the humeral head from the glenohumeral joint. Reading Location: [facility]
--- NOTE | 2024-07-14 08:47 | ED.VIS.FALL ---
HPI HPI - Fall History of Present Illness Chief Complaint: Fall Informant: patient Narrative Narrative: 44-year-old female presenting to the emergency room with right shoulder pain. Patient was leaving her home of record when she slipped on the ice in the front steps. She states that she grabbed the railing which jerked her arm cephalad. She notes pain of the left shoulder and right wrist. She denies pain elsewhere. Nursing notes that she seems to be hyperventilating. She denies any chest pain back pain. [facility] Medical History Bipolar disorder GERD (gastroesophageal reflux disease) Asthma Hypothyroidism Home Medications ?Medication ?Instructions ?Recorded ?Last Taken ?Type albuterol sulfate 90 mcg/actuation 1 puff inhalation Q4H PRN PRN Sob 01/26/14 Unknown History aerosol inhaler (Ventolin HFA) &/Or Wheezing cetirizine 10 mg capsule (Zyrtec) 10 mg PO DAILY 01/26/14 Unknown History levothyroxine 75 mcg tablet 100 mcg PO DAILY 01/26/14 Unknown History montelukast 10 mg tablet 10 mg PO DAILY 01/26/14 Unknown History doxepin 50 mg capsule 50 mg PO QHS 03/30/15 Unknown History diazepam 2 mg tablet 2 mg PO TID PRN PRN Vertigo #9 tabs 05/26/19 Unknown Rx meclizine 25 mg tablet 25 mg PO TID PRN PRN Vertigo #9 05/26/19 Unknown Rx tabs albuterol sulfate 90 mcg/actuation 90 mcg IH 4X/DAY PRN Cough ##1 09/26/19 Unknown Rx breath activated powder inhaler,sensor benzonatate 100 mg capsule 100 mg PO Q4H PRN PRN Cough #20 09/26/19 Unknown Rx caps amoxicillin 875 mg-potassium 1 tab PO BID #14 tabs 08/01/21 Unknown Rx clavulanate 125 mg tablet ondansetron 4 mg disintegrating 4 mg PO Q8H PRN nausea and 08/01/21 Unknown Rx tablet vomiting #10 tabs tramadol 50 mg tablet 50 mg PO Q6H PRN pain #10 tabs 08/01/21 Unknown Rx trazodone 100 mg tablet 100 mg PO QHS 08/01/21 Unknown History oxycodone-acetaminophen 5 mg-325 1 tab PO Q6H PRN pain 3 days #12 07/14/24 Unknown Rx mg tablet (Percocet) tabs Allergy/AdvReac Type Severity Reaction Status Date / Time codeine Allergy Chest Verified 07/14/24 08:19 tightness mirtazapine (From Remeron) Allergy Rash Verified 07/14/24 08:19 morphine Allergy Chest Verified 07/14/24 08:19 tightness Penicillins Allergy Rash Verified 07/14/24 08:19 Sulfa (Sulfonamide Allergy Itching Verified 07/14/24 08:19 Antibiotics) Surgical History History of cholecystectomy Social History household members: none Smoking Status: Former smoker substance use type: does not use ROS ROS ED Constitutional Constitutional ED: Denies chills, fever(s) or weight loss Eyes Eyes: Denies change in vision or diplopia ENT ENT ED: Denies ear pain, rhinorrhea or sore throat Cardiovascular Cardiovascular: Denies chest pain, orthopnea, palpitations or racing heartbeat Respiratory/Chest Respiratory/Chest: Denies cough, dyspnea or orthopnea Gastrointestinal Gastrointestinal: Denies abdominal pain, diarrhea, nausea or vomiting Genitourinary Genitourinary ED: Denies dysuria, hematuria or urinary frequency Musculoskeletal Musculoskeletal: Reports other Details: See history of present illness ; Denies arthralgias, back pain, myalgias or neck pain Integumentary Denies abscess or rash Neurologic Neurologic: Denies headache(s) or weakness Psychiatric Psychiatric: Denies anxiety, depression, suicidal ideation or suicidal thoughts Endocrine Endocrinology: Denies polydipsia, polyphagia or polyuria Allergic/Immunologic Allergic/Immunologic ED: Denies mouth swelling, tongue swelling or urticaria EXAM Physical Exam Narrative Exam Narrative: Patient is hyperventilating and tearful. Const Vital Signs: 07/14/24 08:10 07/14/24 08:20 07/14/24 08:52 Temperature 98.3 F Temperature Source Oral Pulse Rate 82 Pulse Rate [1 (Initial Baseline)] Pulse Rate [2] Respiratory Rate 18 Respiratory Rate [1 (Initial Baseline)] Respiratory Rate [2] Respiratory Effort Normal Respiratory Depth Normal Respiratory Pattern Normal Blood Pressure 127/84 H Blood Pressure [1 (Initial Baseline)] Blood Pressure [2] Blood Pressure Mean 98 Baseline BP Pulse Ox 96 98 Oxygen Delivery Method Room Air Room Air Oxygen Delivery Method [1 (Initial Baseline)] Oxygen Delivery Method [2] Oxygen Flow Rate (L/min) [2] EtCo2 (Normal 35-45 , high quality CPR 10-20 & ROSC>/=40mmHg 35 EtCo2 (Normal 35-45 , high quality CPR 10-20 & ROSC>/=40mmHg [1 (Initial Baseline)] EtCo2 (Normal 35-45 , high quality CPR 10-20 & ROSC>/=40mmHg [2] 07/14/24 08:52 07/14/24 08:52 07/14/24 09:50 Temperature 97.7 F L Temperature Source Pulse Rate 77 91 Pulse Rate [1 (Initial Baseline)] 76 Pulse Rate [2] 81 Respiratory Rate 16 19 H Respiratory Rate [1 (Initial Baseline)] 19 H Respiratory Rate [2] 14 Respiratory Effort Respiratory Depth Respiratory Pattern Blood Pressure 145/87 H 114/76 Blood Pressure [1 (Initial Baseline)] 145/87 H Blood Pressure [2] 145/87 H Blood Pressure Mean Baseline BP 145/87 Pulse Ox 96 95 Oxygen Delivery Method Room Air Oxygen Delivery Method [1 (Initial Baseline)] Room Air Oxygen Delivery Method [2] Nasal Cannula Oxygen Flow Rate (L/min) [2] 4 EtCo2 (Normal 35-45 , high quality CPR 10-20 & ROSC>/=40mmHg EtCo2 (Normal 35-45 , high quality CPR 10-20 & ROSC>/=40mmHg [1 (Initial Baseline)] 25 EtCo2 (Normal 35-45 , high quality CPR 10-20 & ROSC>/=40mmHg [2] 29 07/14/24 09:53 07/14/24 09:58 07/14/24 10:08 Temperature 97.7 F L Temperature Source Pulse Rate 82 93 87 Pulse Rate [1 (Initial Baseline)] Pulse Rate [2] Respiratory Rate 16 16 16 Respiratory Rate [1 (Initial Baseline)] Respiratory Rate [2] Respiratory Effort Respiratory Depth Respiratory Pattern Blood Pressure 133/90 H 135/93 H 156/98 H Blood Pressure [1 (Initial Baseline)] Blood Pressure [2] Blood Pressure Mean 117 Baseline BP Pulse Ox 97 97 99 Oxygen Delivery Method Room Air Room Air Oxygen Delivery Method [1 (Initial Baseline)] Oxygen Delivery Method [2] Oxygen Flow Rate (L/min) [2] EtCo2 (Normal 35-45 , high quality CPR 10-20 & ROSC>/=40mmHg 32 33 EtCo2 (Normal 35-45 , high quality CPR 10-20 & ROSC>/=40mmHg [1 (Initial Baseline)] EtCo2 (Normal 35-45 , high quality CPR 10-20 & ROSC>/=40mmHg [2] Positive well nourished, well developed and obese General Appearance ED: well developed Nutritional Appearance: obese HEENT Reports normocephalic, head/scalp atraumatic and moist mucous membranes Eyes PERRL and EOMs intact bilaterally Neck no lymphadenopathy, supple and no JVD Resp normal respiratory effort and clear to auscultation bilaterally Cardio regular rate, regular rhythm and no murmurs GI normal to inspection, nondistended, normoactive bowel sounds and non-tender Palpation: soft Back/Spine no CVA tenderness and normal ROM Extremity Extremity Narrative: Patient with limited range of motion at the right shoulder secondary to pain. I do not palpate an obvious deformity. The clavicle appears that injury. The patient is pointing to the posterior shoulder supraspinatus region as the area of injury. She also notes tenderness with palpation of the distal wrist. There is no obvious deformity. Neurovascular appears intact General Extremety ED: Negative for edema General Extremity: Negative for edema Neuro oriented x3 and CN's II-XII intact bilaterally Sensorium / Orientation: alert Motor Exam: strength 5/5 throughout Psych Mood & Affect: anxious and tearful; Negative for depressed Skin no rashes or lesions noted and no wounds MDM MDM MDM Narrative Medical decision making narrative: Differential diagnosis includes but not limited to fracture dislocation tendon tear ligamentous injury neurovascular injury My independent interpretation of the plain films of the right wrist is no acute fracture. My independent interpretation of the plain films of the right shoulder is an acute anterior-inferior shoulder dislocation. There is noted to be a rounded calcification Near the glenoid/acromion. This appears to be chronic. Though an acute fracture is not fully eliminated. I spoke with the patient and recommended procedural sedation for reduction of the dislocation. Patient provided informed written consent for the procedure. Patient has not yet had anything to eat or drink today. An IV was established the patient received pain and nausea medication. Once all preparations were made patient received a 1 mg/kg bolus of propofol followed by 0.5 mg/kg aliquots to achieve adequate sedation. Using a standard Milch technique the shoulder was easily reduced. She was placed into a sling and a swath. There is a 3 period of hypoxia which resolved momentarily. She was allowed to recover without any significant incident. My independent interpretation of the postreduction films is successful reduction. I will write for the patient to have orthopedic follow-up as well as pain medication. Protective measures was discussed with the patient who notes understanding. History & Record Review Discussion w/independent historian: Patient Radiography Diagnostic Testing: Clinical Impression(s) from Imaging Studies Shoulder X-Ray 07/14/24 08:45 IMPRESSION: Anterior-inferior dislocation of the humeral head from the glenohumeral joint. Reading Location: [facility] Wrist X-Ray 07/14/24 08:45 IMPRESSION: 1. Soft tissue swelling without acute fracture. 2. If symptoms persist, repeat radiograph in 7-10 days recommended. Reading Location: [facility] Shoulder X-Ray 07/14/24 09:54 IMPRESSION: Successful reduction of the dislocated shoulder. Reading Location: [facility] Procedures Procedural Sedation 1 (Initial Baseline): Consent Signed: Yes Any Problems With Anesthesia: No You/Your family experience fever (hyperthermia) w/anesthesia: No Sedation medication: Propofol Dose: 100 Total Moderate Sedation Units: 6 Maliampati Score: Class I ASA Classification: II Discharge Plan Triage Chief Complaint: Fall ED Provider: Poli Rodriguez Dx/Rx/DC Orders Clinical Impression: Fall, Dislocated shoulder, Acute wrist pain Prescriptions: New oxycodone-acetaminophen [Percocet] 5-325 mg tablet 1 tab PO Q6H PRN (Reason: pain) 3 Days Qty: 12 0RF No Action levothyroxine 75 MCG tablet 100 mcg PO DAILY montelukast 10 MG tablet 10 mg PO DAILY albuterol sulfate [Ventolin HFA] 1 INHALER inhaler 1 puff inhalation Q4H PRN PRN (Reason: Sob &/Or Wheezing) cetirizine [Zyrtec] 10 MG capsule 10 mg PO DAILY doxepin 50 MG capsule 50 mg PO QHS diazepam 2 MG tablet 2 mg PO TID PRN PRN (Reason: Vertigo) Qty: 9 0RF meclizine 25 MG tablet 25 mg PO TID PRN PRN (Reason: Vertigo) Qty: 9 0RF benzonatate 100 MG capsule 100 mg PO Q4H PRN PRN (Reason: Cough) Qty: 20 0RF albuterol sulfate 90 MCG aero powdr breath act w/sensor 90 mcg IH 4X/DAY PRN (Reason: Cough) Qty: 1 0RF amoxicillin-pot clavulanate 875-125 mg tablet 1 tab PO BID Qty: 14 0RF trazodone 100 mg tablet 100 mg PO QHS tramadol 50 mg tablet 50 mg PO Q6H PRN (Reason: pain) Qty: 10 0RF ondansetron 4 mg tablet,disintegrating 4 mg PO Q8H PRN (Reason: nausea and vomiting) Qty: 10 0RF Primary Care Provider: Sebastian George Referrals: Sebastian George MD [Primary Care Provider] - Tomas Dumont MD [Med Staff - Active Staff] - As soon as possible (for orthopedics ) Print Language: Romansh
[2024-07-14] MEDS: HYDROmorphone 1 MG/ML Syringe IV (09:13)
[2024-07-14] MEDS: Propofol 200 MG/20 ML Vial IV BOLUS (09:13)
[2024-07-14] MEDS: Ondansetron 4 MG/2 ML Vial IV (09:13)
--- NOTE | 2024-07-14 09:54 | RAD_ITS ---
EXAM: XR Right Shoulder Complete, 2 or More Views CLINICAL INDICATION: TECHNIQUE: Two or more views of the right shoulder. COMPARISON: Earlier today FINDINGS: BONES/JOINTS: See below. SOFT TISSUES: Successful reduction of the dislocated shoulder. RAD/Shoulder min 2 Views IMPRESSION: Successful reduction of the dislocated shoulder. Reading Location: [facility]
== END 2024-07-14 11:20 | disposition home or self-care (01) ==
LOC: ED 08:42
PROVIDERS: Emergency Provider Emergency Medicine; PCP Family Medicine; Visit Provider Emergency Medicine
DX: S43.014A Anterior dislocation of right humerus, initial encounter (principal); Z87.891 Personal history of nicotine dependence; W00.1XXA Fall from stairs and steps due to ice and snow, initial encounter; Y92.009 Unspecified place in unspecified non-institutional (private) residence as the place of occurrence of the external cause; M25.531 Pain in right wrist; E03.9 Hypothyroidism, unspecified; Z79.890 Hormone replacement therapy; Z90.49 Acquired absence of other specified parts of digestive tract; S43.034A Inferior dislocation of right humerus, initial encounter
CPT/HCPCS: 23650; 73030; 73110; 96374; 96375; 99285; A4216; J2405